=== PATIENT | male | born 1965 | race Caucasian/White ===

== ENCOUNTER 2018-01-07 15:09 | Emergency (ER) | payer BC, OTHER ==
[2018-01-07 15:17] VITALS: BP 138/83
--- NOTE | 2018-01-07 15:46 | ED Physician Documentation ---
PD HPI BACK PAIN - Stated complaint Stated Complaint: BACK INJ - Chief complaint Chief Complaint: Back Pain - History obtained from History obtained from: Patient - History of Present Illness Timing - onset: How many days ago (5) Timing - duration: Days (5) Timing - details: Still present Location: Right Quality: Pain Associated symptoms: Other (Occasional tingling in the right upper extremity.) - Additional information Additional information: The patient is a 52-year-old male who presents with "sharp pain" in the right upper back, beneath the shoulder blade. He describes it as a deep throbbing pain that radiates to his right upper arm. The pain started 5 days ago and has been constant since that time. He denies any traumatic injury or activity that is different from usual. He is right hand dominant. He denies fever, ligh theadedness, chest pain, shortness of breath, nausea or vomiting. He reports occasional tingling in the right upper extremity. He believes his symptoms are caused by a pinched nerve. He has experienced similar but less severe pain in the past. Review of Systems Constitutional: denies: Fever, Fatigue Nose: denies: Congestion Throat: denies: Sore throat Cardiac: denies: Chest pain / pressure, Palpitations Respiratory: denies: Dyspnea, Cough GI: denies: Abdominal Pain, Nausea, Vomiting : denies: Dysuria, Incontinent Skin: denies: Rash Musculoskeletal: reports: Back pain (right upper back.), Extremity pain (right upper arm.). denies: Extremity swelling Neurologic: reports: Numbness (occasional tingling of the right upper extremity, but no current numbness or tingling.). denies: Focal weakness, Headache PD PAST MEDICAL HISTORY - Past Medical History Past Medical History: Yes Cardiovascular: None Respiratory: None Neuro: None Endocrine/Autoimmune: None GI: Other : None HEENT: None Psych: None Musculoskeletal: Chronic back pain Derm: None Other Past Medical History: sarcoidosis, polups, - Past Surgical History Past Surgical History: No General: Colonoscopy - Present Medications Home Medications: Ambulatory Orders Medication Instructions Recorded Confirmed Cyclobenzaprine [Flexeril] 10 mg PO TID PRN #20 tablet 01/07/18 Lisdexamfetamine Dimesylate 40 mg pe 01/07/18 [Vyvanse] - Allergies Allergies/Adverse Reactions: Allergies Allergy/AdvReac Type Severity Reaction Status Date / Time ciprofloxacin [From Cipro] Allergy Cramps Verified 01/07/18 15:17 levofloxacin [From Levaquin] Allergy Cramps Verified 01/07/18 15:17 - Social History Does the pt smoke?: No Smoking Status: Never smoker Does the pt drink ETOH?: Yes Does the pt have substance abuse?: No - Immunizations Immunizations are current?: Yes - POLST Patient has POLST: No PD ED PE NORMAL - Vitals Vital signs reviewed: Yes (borderline hypertension initially.) - General General: Alert and oriented X 3, Well developed/nourished - HEENT HEENT: Atraumatic, Pharynx benign - Neck Neck: Supple, no meningeal sign, No bony TTP, No adenopathy, No JVD, Other (Full cervical range of motion, without tenderness to palpation.) - Cardiac Cardiac: RRR, No murmur - Respiratory Respiratory: No respiratory distress, Clear bilaterally, Other (No chest wall tenderness to palpation.) - Abdomen Abdomen: Soft, Non tender - Back Back: No CVA TTP, No spinal TTP, Other (There is mild tenderness to palpation in the right parathoracic musculature, without tenderness to palpation over the spinous processes.) - Derm Derm: No rash - Extremities Extremities: No deformity, No tenderness to palpate, No edema, Other (Full range of motion of the right shoulder and elbow, although elevation of the right upper extremity does exacerbate the pain in his right upper back.) - Neuro Neuro: Alert and oriented X 3, No motor deficit, No sensory deficit Results - Vitals Vitals: Oxygen O2 Source Room air - EKG (time done) 15:30 Rate: Rate (enter#) (71) Rhythm: NSR [place]: Normal Intervals: Normal [place] QRS: Normal Ischemia: Normal ST segments Computer interpretation: Agree with computer - Rads (name of study) CXR Radiology: Prelim report reviewed, EMP read contemporaneously, See rad report (No intrathoracic plain film abnormality.) PD MEDICAL DECISION MAKING - ED course Complexity details: reviewed results, re-evaluated patient, considered differential, d/w patient ED course: The patient's presentation is most consistent with musculoskeletal pain of the right upper back. His presentation does not suggest cardiac etiology, and his EKG is normal. A chest x-ray was performed to rule out the possibility of pneum othorax or other apical abnormality. Chest x-ray is normal. I do not think any imaging study chest the thoracic spine aren't clinically indicated at this time. He is being discharged with prescription for Flexeril. I discussed with him the likely diagnosis and expected course of illness, symptomatic treatment and outpatient follow-up, as well as potentially worrisome signs or symptoms that should prompt reevaluation in the emergency department. Departure - Departure Disposition: 01 Home, Self Care Clinical Impression: Back pain Qualifiers: Back pain location: thoracic back pain Chronicity: unspecified Back pain laterality: right Qualified Code(s): M54.6 - Pain in thoracic spine Condition: Stable Instructions: ED Neck Back Pain General Prescriptions: Cyclobenzaprine [Flexeril] 10 mg PO TID PRN #20 tablet PRN Reason: Spasms Comments: Apply ice pack to the sore areas intermittently for the next 3 days. You can use ibuprofen, up to 800 mg 3 times daily for the anti-inflammatory effect. You can use Flexeril as prescribed if needed for muscle relaxation. Let pain be your guide to activity level. You can consider massage therapy or chiropractic adjustment. Follow-up with your primary physician upon return to [place], as planned. Return to the emergency department if you develop increasing pain, or otherwise worsening symptoms. Discharge Date/Time: 01/07/18 16:40
--- NOTE | 2018-01-07 16:18 | XRAY Report ---
Reason: right sided back/shoulder pain. Procedure Date: 01/07/2018 Accession Number: [id number] / [id number] Procedure: XR - Chest 2 View X-Ray CPT Code: 28909 FULL RESULT: EXAM: CHEST RADIOGRAPHY EXAM DATE: 01/07/2018 04:00 PM. CLINICAL HISTORY: Right sided back/shoulder pain. COMPARISON: None. TECHNIQUE: 2 views. FINDINGS: Lungs/Pleura: No focal opacities evident. No pleural effusion. No pneumothorax. Normal volumes. Mediastinum: Heart and mediastinal contours are unremarkable. Other: None. IMPRESSION: No acute intrathoracic plain film abnormality. [facility]
== END 2018-01-07 16:40 | disposition home or self-care (01) ==
LOC: ED 15:09
DX: M54.6 Pain in thoracic spine (principal)
CPT/HCPCS: 71046; 93005; 99283